=== PATIENT | female | born 1975 | race Caucasian/White ===

== ENCOUNTER 2016-06-06 10:49 | Outpatient (CLI) | payer OTHER | END 2016-06-06 10:50 | disposition home or self-care (01) | DX: S86.112A Strain of other muscle(s) and tendon(s) of posterior muscle group at lower leg level, left leg, initial encounter (principal) ==

== ENCOUNTER 2019-07-02 14:51 | Outpatient (CLI) | payer OTHER ==
--- NOTE | 2019-07-07 09:30 | Mammography Report ---
Reason: ROUTINE MAMMO Procedure Date: 07/02/2019 Accession Number: [id number] / [id number] Procedure: [facility] - Screening Mammo Dig Bilat CPT Code: Final Report FULL RESULT: EXAM: Screening Mammo Dig Bilat DATE: 07/02/2019 3:16 PM CLINICAL HISTORY: Screening encounter. History of late childbearing. TECHNIQUE: (B) - Bilateral CC and MLO views were obtained. COMPARISON: 05/22/2018 through 07/29/2015. PARENCHYMAL PATTERN: (D) - The breast(s) demonstrate(s) heterogeneously dense fibroglandular parenchyma. FINDINGS: There are no suspicious masses, calcifications, or areas of distortion. IMPRESSION: Negative examination. BI-RADS category 1. RECOMMENDATION: (ANNUAL) - Recommend routine annual screening mammography. BI-RADS CATEGORY: (1) - Negative. STANDARD QUALIFYING STATEMENTS: 1. This examination was not reviewed with the aid of Computer-Aided Detection (CAD). 2. A negative or benign imaging report should not preclude biopsy if clinically suspicious findings are present. 3. Dense breasts may obscure an underlying neoplasm. 4. This examination was reviewed with the aid of 3D breast imaging (tomosynthesis).
== END 2019-07-02 14:52 | disposition home or self-care (01) ==
LOC: DI 14:51
DX: Z12.31 Encounter for screening mammogram for malignant neoplasm of breast (principal)
CPT/HCPCS: 77067

== ENCOUNTER 2020-05-13 14:41 | Outpatient (CLI) | payer OTHER ==
--- NOTE | 2020-05-13 18:12 | MRI Report ---
PROCEDURE: Brain W/O INDICATIONS: HEADACHE TECHNIQUE: Noncontrast axial T1 spin echo, axial T2 fast spin echo, sagittal and axial FLAIR, coronal T2 fast sp in echo, axial gradient echo, axial diffusion and ADC through the brain. COMPARISON: None. FINDINGS: Image quality: Excellent. CSF Spaces: Basal cisterns are patent. No extra-axial fluid collections. Ventricles are normal in size and shape. Brain: No intracranial masses or hemorrhage. Goldman/white matter interface is normal. Brainstem appe ars normal. Diffusion-weighted images demonstrate no acute ischemic insult. No chronic ischemic ins ults. Normal intravascular flow voids are present. Skull and face: Calvarium has normal marrow signal. Orbits appear normal. Sinuses: Sinuses and mastoids are clear. IMPRESSION: A cause of headache cannot be seen on these images. Reviewed by: Manny Jhaveri MD on 05/13/2020 5:11 PM [facility] Approved by: Manny Jhaveri MD on 05/13/2020 5:11 PM [facility] Station ID: [id number]
== END 2020-05-13 14:42 | disposition home or self-care (01) ==
LOC: DI 14:41
DX: R51.9 Headache, unspecified (principal)
CPT/HCPCS: 70551